=== PATIENT | female | born 1995 | race Caucasian/White ===

== ENCOUNTER 2017-01-31 18:57 | Emergency (ER) | payer SELFPAY ==
[~2017-01-31] VITALS: Ht 154.9 cm; Wt 69.0 kg
[2017-01-31 19:13] VITALS: BP 115/66
== END 2017-01-31 19:49 | disposition left against medical advice (07) ==
LOC: ER 18:57
DX: H53.8 Other visual disturbances (principal); Z53.21 Procedure and treatment not carried out due to patient leaving prior to being seen by health care provider